=== PATIENT | male | born 1975 | race Caucasian/White ===

== ENCOUNTER 2023-04-08 11:49 | Emergency (ER) | payer OTHER, SELFPAY ==
[2023-04-08 11:50] VITALS: BP 169/100; PULSE 75; RESP 20; TEMP 36.5; O2SAT 98; BMI 21.1
--- NOTE | 2023-04-08 11:57 | CT_ITS ---
PROCEDURE INFORMATION: Exam: CT Abdomen And Pelvis With Contrast Exam date and time: 04/08/2023 1:15 PM Age: 47 years old Clinical indication: Abdominal pain; Flank; Right; Additional info: R CVA flank pain TECHNIQUE: Imaging protocol: Computed tomography of the abdomen and pelvis with contrast. Radiation optimization: All CT scans at this facility use at least one of these dose optimization techniques: automated exposure control; mA and/or kV adjustment per patient size (includes targeted exams where dose is matched to clinical indication); or iterative reconstruction. Contrast material: ISOVUE 370; Contrast volume: 75 ml; Contrast route: IV; REPORTING DATA: Count of CT and Cardiac NM exams in prior 12 months: This patient has received 0 known CTs and 0 known cardiac nuclear medicine studies in the 12 months prior to the current study. COMPARISON: No relevant prior studies available. FINDINGS: Lungs: Bibasilar subsegmental atelectasis noted. There is a 5 mm right middle lobe nodule. Liver: No focal hepatic lesions. A focus of hypoattenuation within the left hepatic lobe adjacent to the falciform ligament likely represents focal fatty infiltration and/or perfusional changes. Gallbladder and bile ducts: Gallbladder is distended without radiopaque cholelithiasis. No biliary ductal dilation. Pancreas: No peripancreatic fluid stranding. No main pancreatic ductal dilation. Spleen: No splenomegaly. Adrenal glands: The adrenal glands are normal. Kidneys and ureters: The right nephrogram is delayed. There is mild right hydroureteronephrosis proximal to 4 x 2 x 2 mm calculus in the ureterovesical junction. Stomach and bowel: Scattered colonic diverticula without acute inflammatory change. Appendix: A normal appendix is identified. Intraperitoneal space: Unremarkable. No free air. No significant fluid collection. Vasculature: The aorta demonstrates mild atherosclerotic calcification. Aorta is nonaneurysmal. The aorta demonstrates mild atherosclerotic calcification. Lymph nodes: Prominent right retroperitoneal nodes likely reactive. Urinary bladder: Unremarkable as visualized. Reproductive: Unremarkable as visualized. Bones/joints: Discogenic changes noted at L1-L2 level. No acute osseous abnormality. Soft tissues: There is a small lipoma in the muscles of left lateral abdominal wall IMPRESSION: 1. The right nephrogram is delayed. There is mild right hydroureteronephrosis proximal to 4 x 2 x 2 mm calculus in the ureterovesical junction. 2. There is a 5 mm right middle lobe nodule. For patients at low risk (minimal or absent history of smoking and of other known risk factors), no routine follow-up is indicated. For patients at high risk (history of smoking or of other known risk factors), consider optional CT Chest at 12 months. (Reference: Salvador) REFERENCES: Salvador Pantoja, et al. Guidelines for Management of Incidental Pulmonary Nodules Detected on CT Images: From the Fleischner Society 2017. Radiology. 2017;284(1):228-243.
--- NOTE | 2023-04-08 11:58 | [facility].EDGENADL ---
Discharge Plan Disposition Chief Complaint: PAIN Prescriptions Prescriptions: No Action No Known Home Medications Referrals Follow up/Referrals: Provider,Referral, [Primary Care Provider] - See instructions Activity Restrictions/Add. Instructions Additional Instructions/Restrictions: At this time it was felt you are safe to be discharged home. If new or worsening symptoms please do not hesitate to return the emergency department. There was an incidental nodule found in the right middle lobe of your lung, this is likely benign, however please follow-up with your family doctor for continued surveillance. Clinical Impressions Clinical Impression: Ureterolithiasis, Incidental pulmonary nodule Discharge ED Provider: Beau Epstein General Adult HPI General Chief complaint: PAIN Stated complaint: back pain, unknown origin Time Seen by Provider: 04/08/23 11:52 History of Present Illness HPI narrative: Patient is a 47-year-old male with past medical history of previous ureterolithiasis requiring extraction who presents emergency department for evaluation of back pain. Onset was acute, earlier today, right-sided radiating into his flank. Patient denies dysuria, hematuria, vomiting, other acute complaints at this time. Symptoms are refractory to ibuprofen and lidocaine patch at home. Patient does not have a history of chronic back pain. Denies trauma. Related Data Home Medications Medication Instructions Recorded Confirmed No Known Home Medications 04/08/23 04/08/23 Allergies Allergy/AdvReac Type Severity Reaction Status Date / Time No Known Allergies Allergy Verified 04/08/23 11:59 [facility] Disclaimer: The information contained in this section may have been updated after the patient was seen, as this information can be updated by other users. Medical History (Updated 04/08/23 @ 13:42 by Beau Epstein MD) History of kidney stones Surgical History (Updated 04/08/23 @ 12:17 by Fransisca Mckay RN) Hx of lithotripsy Social History (Updated 04/08/23 @ 12:19 by Fransisca Mckay RN) Smoking Status: Current every day smoker tobacco type: cigarettes alcohol intake: current substance use type: marijuana counseling given: Yes current occupational status: other Travel in the last 8 weeks: None ROS Obtained: Yes Systems reviewed as appropriate & no additional complaints except as documented Physical Exam General General appearance: alert and other (Appearing in pain in bed) Head Head exam: atraumatic and normocephalic Eye Eye exam: Present PERRL and EOMI ENT ENT exam: Present mucous membranes moist Neck Neck exam: Present normal inspection Chest Chest inspection: Present normal inspection and symmetric chest wall rise Respiratory Respiratory exam: Present normal lung sounds bilaterally; Absent respiratory distress Cardiovascular Cardiovascular exam: Present regular rate and normal rhythm Abdominal Exam Abdominal exam: Present soft; Absent tenderness Extremities Exam Extremities exam: Present normal inspection Back Exam Back exam: Present normal inspection; Absent tenderness Neurological Exam Neurological exam: Present alert Psychiatric Psychiatric exam: Present normal affect Skin Skin exam: Present warm and dry Medical Decision Making Sam Inquiry Pt receiving controlled substance: No Vital Signs: 04/08/23 11:50 04/08/23 12:00 04/08/23 12:30 Temperature 97.7 F Temperature Source Oral Pulse Rate 68 68 Pulse Rate [Right] 75 Respiratory Rate 20 20 20 Blood Pressure 163/104 H 185/103 H Blood Pressure [Right Arm] 169/100 H Blood Pressure Mean 123 130 Blood Pressure Mean [Right Arm] 123 Blood Pressure Source [Right Arm] Automatic Cuff 02 Sat by Pulse Oximetry 98 100 100 Oxygen Delivery Method Room Air 04/08/23 13:01 Temperature Temperature Source Pulse Rate 95 H Pulse Rate [Right] Respiratory Rate 20 Blood Pr
[2023-04-08 11:59] VITALS: BMI 21.1
[2023-04-08 12:00] VITALS: BP 163/104; PULSE 68; RESP 20; O2SAT 100
[2023-04-08 12:05] LABS: Basophils # 0.1 K/mm3 (0-0.2); Basophils % 0.4 % (0.1-2.0); Eosinophils # 0.3 K/mm3 (0.0-0.4); Eosinophils % 1.9 % (0.1-12.0); Hematocrit 47.9 % (42.0-52.0); Hemoglobin 16.5 g/dL (14.1-18.0); Lymphocytes # 2.7 K/mm3 (0.7-4.5); Lymphocytes % 19.8 % (10-50); Mean Corpuscular HGB Conc 34.4 g/dL (31.8-35.4); Mean Corpuscular Hemoglobin 31.1 pg (27.0-31.2); Mean Corpuscular Volume 90.4 fl (80-94); Monocytes # 0.4 K/mm3 (0.1-1.0); Neutrophils # 10.3 K/mm3 (1.8-7.8); Neutrophils % 74.9 % (37.0-80.0); Platelet Count 350 K/mm3 (142-424); Red Blood Count 5.29 M/mm3 (4.60-6.20); Red Cell Distribution Width 13.9 % (11.5-17.5); White Blood Count 13.7 K/mm3 (4.8-10.8)
[2023-04-08 12:22] LABS: Alanine Aminotransferase 31 U/L (12-78); Albumin Level 4.7 g/dl (3.5-5.0); Albumin/Globulin Ratio 1.4 (1.1-1.8); Alkaline Phosphatase 86 U/L (38-126); Anion Gap 14.7 mEq/L (5-15); Aspartate Amino Transferase 39 U/L (17-59); Bilirubin,Total 0.8 mg/dl (0.2-1.3); Blood Urea Nitrogen 14 mg/dl (9-20); Calcium 9.1 mg/dl (8.4-10.2); Carbon Dioxide 25 mmol/L (22.0-30.0); Chloride 101 mmol/L (98-107); Creatinine Clearance Estimated 96 mL/min (50-200); Estimated Glomerular Filt Rate 90 ml/min (>60); GFR (African American) 109 ML/MIN (>60); Globulin 3.4 g/dL (1.3-3.2); Glucose 124 mg/dl (74-100); Lipase 55 U/L (23-300); Potassium 4.7 mmoL/L (3.5-5.1); Sodium 136 mmol/L (136-145); Total Protein,Serum 8.1 g/dl (6.3-8.2)
[2023-04-08 12:30] VITALS: BP 185/103; PULSE 68; RESP 20; O2SAT 100
--- NOTE | 2023-04-08 12:38 | PC.NURSE ---
ER MD Epstein at discussing results and POC with pt.
[2023-04-08 12:50] LABS: Microscopic, Urine URINE MICROSCOPIC (MICROSCOPIC)
[2023-04-08 12:53] LABS: Appearance,Urine CLEAR (Clear); Bilirubin,Urine Negative (Negative); Blood, Urine Negative (Negative); Color,Urine YELLOW (Yellow); Glucose,Urine (UA) Negative (Negative); Ketones,Urine Negative (Negative); Leukocyte Esterase,Urine Negative (Negative); Nitrate,Urine Negative (Negative); PH,Urine 7.5 (5.0-8.5); Protein,Urine Negative (Negative); Urobilinogen,Urine 0.2 EU/dl (0.2)
[2023-04-08 13:01] VITALS: BP 142/86; PULSE 95; RESP 20; O2SAT 97
[2023-04-08 13:05] LABS: Bacteria,Urine Trace /lpf
[2023-04-08 13:30] VITALS: BP 147/93; PULSE 94; O2SAT 99
--- NOTE | 2023-04-08 13:39 | PC.NURSE ---
rounded on pt at this time, pt sitting up on the side of the best. Reports feeling much better. Small area of sediment noted in urinal after urination, possibly his kidney stone. Notified ER MD Epstein who went to bs to reassess pt.
[2023-04-08 13:48] VITALS: BP 138/87; PULSE 90; RESP 17; TEMP 36.7; O2SAT 99
== END 2023-04-08 13:54 | disposition home or self-care (01) ==
PROVIDERS: Emergency Provider Emergency Medicine
DX: N13.0 Hydronephrosis with ureteropelvic junction obstruction; N13.4 Hydroureter; M54.59 Other low back pain; R10.31 Right lower quadrant pain; R91.1 Solitary pulmonary nodule; F17.210 Nicotine dependence, cigarettes, uncomplicated
CPT/HCPCS: 74177; 80053; 81001; 83690; 85025; 96361; 96374; 96375; 96376; 99285; J0131; Q9967